=== PATIENT | male | born 2005 | race Caucasian/White ===

== ENCOUNTER 2025-01-19 12:29 | Emergency (ER) | payer OTHER ==
[~2025-01-19] VITALS: Ht 182.9 cm; Wt 97.4 kg
[2025-01-19 15:57] VITALS: BP 160/81; TEMP 99; O2SAT 99
== END 2025-01-19 15:59 | disposition home or self-care (01) ==
LOC: M ED 12:29
DX: S62.645A Nondisplaced fracture of proximal phalanx of left ring finger, initial encounter for closed fracture (principal); X58.XXXA Exposure to other specified factors, initial encounter; Y92.9 Unspecified place or not applicable; Y93.89 Activity, other specified; Y99.1 Military activity